=== PATIENT | female | born 1955 | race Caucasian/White ===

== ENCOUNTER 2018-06-18 10:01 | Emergency (ER) | payer OTHER ==
[2018-06-18 10:01] VITALS: BMI 33.3
[2018-06-18 10:10] VITALS: RESP 18; O2SAT 99
[2018-06-18] MEDS ORDERED: Alum-Mag Hydrox-Simethicone Susp (30 mL) PO STA (10:53)
--- NOTE | 2018-06-18 10:53 | C.PDOC ---
History Of Present Illness 62 y/o female presents to the ER complaining of pain and swelling to bilateral thighs which has been present for the past 1 week. Patient reports that she did not take any medications for the pain. She notes that she went to PMD office and was seen by Thomas RIZO and she was given prescription to go to ED for Venous Doppler Study of bilateral legs. Patient is also complaining of rash to trunk and extremities for yrs. Denies having weakness and numbness of legs. Time Seen by Provider: 06/18/18 10:29 Chief Complaint (Nursing): Lower Extremity Problem/Injury History Per: Patient History/Exam Limitations: no limitations Onset/Duration Of Symptoms: Days Current Symptoms Are (Timing): Still Present Severity: Moderate Past Medical History Reviewed: Historical Data, Nursing Documentation, Vital Signs Vital Signs: Last Vital Signs Temp 97.4 F L 06/18/18 10:06 Pulse 71 06/18/18 10:06 Resp 18 06/18/18 10:06 BP 154/76 H 06/18/18 10:06 Pulse Ox 99 06/18/18 10:06 - Medical History PMH: Arthritis, Asthma, Depression, Fractures, Gastritis Denies: Chronic Kidney Disease Other Surgeries: Hx of surgeries - [facility] Procedures ENDOSC POLYPECTOMY OF LG INTEST (01/15/15) Family History: States: No Known Family Hx - Social History Hx Tobacco Use: Yes Hx Alcohol Use: No Hx Substance Use: No - Immunization History Hx Tetanus Toxoid Vaccination: No Hx Influenza Vaccination: No Hx Pneumococcal Vaccination: No Review Of Systems Except As Marked, All Systems Reviewed And Found Negative. Musculoskeletal: Positive for: Other (pain to bilateral thighs) Skin: Positive for: Rash Neurological: Negative for: Weakness, Numbness Physical Exam - Physical Exam Appears: Non-toxic, No Acute Distress Skin: Warm, Dry, Rash (excoriated hyperpigmented papules to trunk and extremities) Head: Atraumatic, Normacephalic Eye(s): bilateral: Normal Inspection Ear(s): Bilateral: Normal Nose: Normal Oral Mucosa: Moist Lips: Normal Appearing Neck: Normal, Normal ROM, Supple Lymphatic: Normal Exam Chest: Symmetrical Cardiovascular: Rhythm Regular Respiratory: Normal Breath Sounds, No Rales, No Rhonchi, No Wheezing Extremity: Normal ROM, Tenderness (tenderness to palpation to bilateral post thighs), Swelling (mild swelling to bilateral posterior thighs ( L>R)) Neurological/Psych: Oriented x3, Normal Speech ED Course And Treatment O2 Sat by Pulse Oximetry: 99 (RA) Pulse Ox Interpretation: Normal Medical Decision Making Medical Decision Making: Plan: --Maalox PO --Ibuprofen PO --Venous Duplex Scan- Low. Ext. Bi. Updates: Venous Duplex Scan was done to BL lower extremities at bedside, the scan is negative. Disposition Counseled Patient/Family Regarding: Studies Performed, Diagnosis, Need For Followup - Disposition Referrals: Fredo Lorenzo MD [Staff Provider] - Disposition: HOME/ ROUTINE Disposition Time: 12:25 Condition: STABLE Additional Instructions: FOLLOW UP WITH YOUR PMD TOMORROW FOR RE-EVALUATION OF LEG PAIN/ SWELLING AND ECONOMIC FORECASTER REFERRAL. IF SYMPTOMS GET WORSE OR ANY NEW CONCERNING SYMPTOMS DEVELOP RETURN TO ED. Prescriptions: Triamcinolone 0.1% [Triamcinolone 0.1% Cream] 1 apful TP BID #80 g Acetaminophen [Tylenol Extra Strength] 500 mg PO Q6H PRN #15 tablet PRN Reason: Pain, Moderate (4-7) Instructions: Skin Rash (DC) Forms: [employer] ([place]orese) - Clinical Impression Clinical Impression: Leg pain, bilateral, Prurigo nodularis - PA / SEASONING SPRAYER / Resident Statement MD/DO has reviewed & agrees with the documentation as recorded. - Scribe Statement The provider has reviewed the documentation as recorded by the Brittanyibpetar Zamora Provider Attestation All medical record entries made by the Scribe were at my direction and personally dictated by me. I have reviewed the chart and agree that the record accurately reflects my personal performance of the history, physical exam, medical decision making, and the department course for this patient. I have also personally directed, reviewed, and agree with the discharge instructions and disposition.
[2018-06-18 12:35] VITALS: BP 146/79; PULSE 81; TEMP 97.9
--- NOTE | 2018-06-19 09:19 | VASCLAB ---
Date of service: 06/18/2018 PROCEDURE: Lower Extremity Venous Duplex Exam. HISTORY: pain r/o dvt B/L LE Edema PRIORS: None. TECHNIQUE: Bilateral common femoral, femoral, popliteal and posterior tibial, peroneal and great saphenous veins were evaluated. Flow was assessed with color Doppler, compressibility, assessment of phasic flow and augmentation response. Report prepared by Tremaine Metcalf, T FINDINGS: RIGHT: 1. Common Femoral Vein: 1.1. Compressibility - Fully compressible: Thrombus - None : Flow - Phasic: Augmentation -Normal: Reflux - . 2. Femoral Vein: 2.1. Compressibility - Fully compressible: Thrombus - None : Flow - Phasic: Augmentation -Normal: Reflux - . 3. Popliteal Vein: 3.1. Compressibility - Fully compressible: Thrombus - None : Flow - Phasic: Augmentation -Normal: Reflux - . 4. Posterior Tibial Vein: 4.1. Compressibility - Fully compressible: Thrombus - None: Flow - Phasic: Augmentation -Normal: Reflux - . 5. Peroneal Vein: 5.1. Compressibility - Fully compressible: Thrombus - None: Flow - Phasic: Augmentation -Normal: Reflux - . 6. Great Saphenous Vein: 6.1. Compressibility - Fully compressible: Thrombus - None: Flow - Phasic: Augmentation - Normal: Reflux - . LEFT: 1. Common Femoral Vein: 1.1. Compressibility - Fully compressible: Thrombus - None: Flow - Phasic: Augmentation -Normal: Reflux - . 2. Femoral Vein: 2.1. Compressibility - Fully compressible: Thrombus - None: Flow - Phasic: Augmentation -Normal: Reflux - . 3. Popliteal Vein: 3.1. Compressibility - Fully compressible: Thrombus - None : Flow - Phasic: Augmentation -Normal: Reflux - . 4. Posterior Tibial Vein: 4.1. Compressibility - Fully compressible: Thrombus - None: Flow - Phasic: Augmentation -Normal: Reflux - . 5. Peroneal Vein: 5.1. Compressibility - Fully compressible: Thrombus - None: Flow - Phasic: Augmentation -Normal: Reflux - . 6. Great Saphenous Vein: 6.1. Compressibility - Fully compressible: Thrombus - None: Flow - Phasic: Augmentation - Normal: Reflux - . OTHER FINDINGS: Right: None significant. Left: None significant. IMPRESSION: Right: No evidence of deep or superficial vein thrombosis of the right lower extremity. Left: No evidence of deep or superficial vein thrombosis of the left lower extremity.
== END 2018-06-18 12:40 | disposition home or self-care (01) ==
LOC: C.ER 10:01
DX: L28.1 Prurigo nodularis (principal); M79.605 Pain in left leg; M79.604 Pain in right leg; Z72.0 Tobacco use

== ENCOUNTER 2018-10-07 18:46 | Emergency (ER) | payer MEDICAID, OTHER ==
[2018-10-07 19:22] VITALS: BMI 28.8
[2018-10-07 19:47] VITALS: O2SAT 99
--- NOTE | 2018-10-07 20:05 | C.PDOC ---
History Of Present Illness Patient is a 63 year old female with pmhx of asthma, arthritis, depression who presents to ED today with complaints of headache for 5 days. Patient reports bilateral muscle pain from shoulders through posterior cervical muscles up and around head diffusely. Patient reports vertigo with position changes and increased activity. Patient reports pain is constant, not relieved by over the counter analgesics. Denies blurry vision, chest pain, SOB, nausea, vomiting, paresthesias. <OrdonezKinga - Last Filed: 10/07/18 21:43> History Per: Patient History/Exam Limitations: no limitations Onset/Duration Of Symptoms: Days Current Symptoms Are (Timing): Still Present Severity: Moderate Quality: "Pain" Preceeding Symptoms: None Associated Symptoms: denies: Photophobia, Blurred Vision, Nausea, Vomiting, Extremity Weakness Additional History Per: Family <Kinga Ordonez - Last Filed: 10/07/18 21:43> <Prasanna Thurman DO - Last Filed: 10/08/18 00:54> Chief Complaint (Nursing): Headache Past Medical History Reviewed: Historical Data, Nursing Documentation, Vital Signs Vital Signs: Last Vital Signs Temp 97.4 F L 10/07/18 19:09 Pulse 70 10/07/18 19:46 Resp 16 10/07/18 19:46 BP 170/77 H 10/07/18 19:46 Pulse Ox 99 10/07/18 19:46 - Medical History PMH: Arthritis, Asthma, Depression, Fractures, Gastritis Denies: Chronic Kidney Disease - [facility] Procedures ENDOSC POLYPECTOMY OF LG INTEST (01/15/15) Family History: States: [place] - Social History Hx Tobacco Use: Yes Hx Alcohol Use: No Hx Substance Use: No - Immunization History Hx Tetanus Toxoid Vaccination: No Hx Influenza Vaccination: No Hx Pneumococcal Vaccination: No <Kinga Ordonez - Last Filed: 10/07/18 21:43> Vital Signs: Last Vital Signs Temp 97.6 F 10/07/18 23:07 Pulse 67 10/07/18 21:42 Resp 18 10/07/18 21:42 BP 156/87 H 10/07/18 21:42 Pulse Ox 99 10/07/18 21:43 - [facility] Procedures ENDOSC POLYPECTOMY OF LG INTEST (01/15/15) <Prasanna Thurman DO - Last Filed: 10/08/18 00:54> Review Of Systems Constitutional: Negative for: Weakness Eyes: Negative for: Vision Change Cardiovascular: Negative for: Chest Pain, Palpitations, Orthopnea, Light Headedness Respiratory: Negative for: Shortness of Breath Gastrointestinal: Negative for: Nausea, Vomiting Genitourinary: Negative for: Dysuria Musculoskeletal: Positive for: Neck Pain, Shoulder Pain Skin: Positive for: Lesions (diffuse vesicles over body]) Neurological: Positive for: Headache, Other (vertigo). Negative for: Weakness, Numbness Psych: Positive for: Depression <José LuisKinga - Last Filed: 10/07/18 21:43> Physical Exam - Physical Exam Appears: Non-toxic, No Acute Distress Skin: Normal Color, Warm, Dry, Rash (diffuse vesicles crusted over) Head: Atraumatic, Normacephalic Eye(s): bilateral: Normal Inspection, PERRL, EOMI Oral Mucosa: Dry Neck: Paracervical Tenderness Cardiovascular: Rhythm Regular, No Murmur Respiratory: Decreased Breath Sounds, No Accessory Muscle Use, No Wheezing Gastrointestinal/Abdominal: Normal Exam, Bowel Sounds, Soft, No Tenderness Extremity: No Tenderness, No Pedal Edema, No Calf Tenderness Neurological/Psych: Oriented x3, Normal Speech, Normal Motor, Normal Sensation <OrdonezKinga - Last Filed: 10/07/18 21:43> ED Course And Treatment - Laboratory Results Result Diagrams: 10/07/18 20:48 10/07/18 20:48 Lab Interpretation: Normal ECG: Viewed By Id ECG Rhythm: Sinus Rhythm (possible left atrial enlargement) ECG Interpretation: No Acute Changes O2 Sat by Pulse Oximetry: 99 Pulse Ox Interpretation: Normal <José LuisKinga - Last Filed: 10/07/18 21:43> - Laboratory Results Result Diagrams: 10/07/18 20:48 10/07/18 20:48 Lab Results: Total Bilirubin 0.3 mg/dL (0.2-1.3) 10/07/18 20:48 AST 39 U/L (14-36) H 10/07/18 20:48 ALT 15 U/L (9-52) 10/07/18 20:48 Alkaline Phosphatase 112 U/L (38-126) 10/07/18 20:48 Total Protein 7.6 g/dL (6.3-8.3) 10/07/18 20:48 Albumin 4.4 g/dL (3.5-5.0) 10/07/18 20:48 Globulin 3.2 gm/dL (2.2-3.9) 10/07/18 20:48 Albumin/Globulin Ratio 1.4 (1.0-2.1) 10/07/18 20:48 <Prasanna Thurman DO - Last Filed: 10/08/18 00:54> Medical Decision Making Medical Decision Makin63 year old female presenting with complaints of headache and positional vertigo CBC CMP CT head EKG Toradol IVF Upon re-evaluation, pt reports improvement in headache severity. <Kinga Ordonez - Last Filed: 10/07/18 21:43> Disposition - Disposition Disposition Time: 21:42 <Kinga Ordonez - Last Filed: 10/07/18 21:43> <Prasanna Thurman DO - Last Filed: 10/08/18 00:54> - Disposition Referrals: [facility] Charlie Slaughter, [Non-Staff] - Disposition: HOME/ ROUTINE Condition: IMPROVED Additional Instructions: VLADISLAV ROLDAN, thank you for letting us take care of you today. The emergency medical care you received today was directed at your acute symptoms. If you were prescribed any medication, please fill it and take as directed. It may take several days for your symptoms to resolve. Return to the Emergency Department if your symptoms worsen, do not improve, or if you have any other problems. Please contact your doctor or call one of the physicians/clinics you have been referred to that are listed on the Patient Visit Information form that is included in your discharge packet. Bring any paperwork you were given at dischar ge with you along with any medications you are taking to your follow up visit. Our treatment cannot replace ongoing medical care by a primary care provider outside of the emergency department. Thank you for allowing the [facility] team to be part of your care today. Follow up with your primary care doctor this week for re-evaluation and further management. VLADISLAV ROLDAN, christine por dejarnos cuidar de ti hoy. La atencin mdica de emergencia que recibi hoy se dirigi a kyleigh sntomas agudos. Si le recetaron algn medicamento, llnelo y tmelo segn las indicaciones. Los sntomas pueden tardar varios maddox en resolverse. Regrese al Departamento de Emergencias si kyleigh sntomas empeoran, no mejoran o si tiene otros problemas. Comunquese con griffith mdico o llame a jovanny de los mdicos / clnicas a los que duarte sido referido que figuran en el formulario de Informacin de visita al paciente que se incluye en griffith paquete de bill. Lleve todos los documentos que recibi al momento del bill junto con los medicamentos que est tomando para griffith visita de seguimiento. Nuestro tratamiento no puede reemplazar la atencin mdica continua por parte de un proveedor de atencin primaria fuera del departamento de emergencias. Christine por permitir que el equipo de [facility] [employer] sea parte de griffith atencin hoy. Nash un seguimiento con griffith mdico de atencin primaria esta semana para mahin reevaluacin y manejo adicional. Prescriptions: Azithromycin [Zithromax] 250 mg PO DAILY #6 tab Meclizine [Meclizine*] 25 mg PO Q6 PRN #20 tab PRN Reason: Dizziness Instructions: Sinus Headache (DC) Forms: [employer] (M[place]ese) Print Language: BURMESE - Clinical Impression Clinical Impression: Headache, Sinusitis - PA / MILIEU MANAGER / Resident Statement CARO has reviewed & agrees with the documentation as recorded. CARO has examined the patient and agrees with the treatment plan. <Prasanna Thurman DO - Last Filed: 10/08/18 00:54>
[2018-10-07] MEDS ORDERED: Sodium Chloride 0.9% 1,000 ML IV SCH (20:15)
[2018-10-07] MEDS ORDERED: Sodium Chloride 0.9% 1,000 ML ONE (20:29)
[2018-10-07 21:00] LABS: BASO # 0.1 K/uL (0.0-0.2); BASO % 0.9 % (0.0-2.0); EOS # 0.1 K/uL (0.0-0.7); HEMOGLOBIN 12.9 g/dL (11.0-16.0); LYMPH # 2.2 K/uL (1.0-4.3); LYMPH % 37.4 % (20.0-40.0); MEAN CELL VOLUME 98.5 fL (81.0-99.0); MEAN CORPUSCULAR HEMOGLOBIN 32.5 pg (27.0-31.0); MEAN PLATELET VOLUME 8.2 fL (7.2-11.7); MONO # 0.4 K/uL (0.0-0.8); MONO % 6.5 % (0.0-10.0); NEUT # 3.1 K/uL (1.8-7.0); NEUT % 53.2 % (50.0-75.0); RBC 3.98 Mil/uL (3.80-5.20); RED CELL DISTRIBUTION WIDTH 15.2 % (11.5-14.5); WHITE BLOOD COUNT 5.9 K/uL (4.8-10.8)
[2018-10-07 21:21] LABS: ALB/GLOB RATIO 1.4 (1.0-2.1); ALBUMIN 4.4 g/dL (3.5-5.0); ALT/SGPT 15 U/L (9-52); AST/SGOT 39 U/L (14-36); BLOOD UREA NITROGEN 10 mg/dL (7-17); CALCIUM 8.9 mg/dl (8.6-10.4); GFR NON-AFRICAN AMERICAN > 60
[2018-10-07 21:43] VITALS: BP 156/87; PULSE 67; RESP 18
[2018-10-07 23:07] VITALS: TEMP 97.6
--- NOTE | 2018-10-08 08:35 | CT ---
Date of service: 10/07/2018 PROCEDURE: CT HEAD WITHOUT CONTRAST. HISTORY: headache/vertigo COMPARISON: None available. TECHNIQUE: Axial computed tomography images were obtained through the head/brain without intravenous contrast. Radiation dose: Total exam DLP = 1054.27 mGy-cm. This CT exam was performed using one or more of the following dose reduction techniques: Automated exposure control, adjustment of the mA and/or kV according to patient size, and/or use of iterative reconstruction technique. FINDINGS: HEMORRHAGE: No intracranial hemorrhage. BRAIN: No mass effect or edema. No atrophy or chronic microvascular ischemic changes. Punctate hypodensity in the left basal ganglia suggestive for a punctate lacunar infarct. VENTRICLES: Unremarkable. No hydrocephalus. CALVARIUM: Unremarkable. PARANASAL SINUSES: Moderate mucosal opacification of the ethmoid air cells. Mucosal thickening of the bilateral maxillary sinuses. MASTOID AIR CELLS: Unremarkable as visualized. No inflammatory changes. OTHER FINDINGS: None. IMPRESSION: No acute intracranial abnormality. Sinus mucosal disease. If symptoms persists, consider correlation with MRI. A preliminary report was generated at 10:26 p.m. on 10/07/[address] Vernon Frye from [employer].
--- NOTE | 2018-10-08 20:42 | CARD ---
APPROVED REPORT Date of service: 10/07/2018 EKG Measurement Heart [id number] <Conclusion> Normal sinus rhythm Possible Left atrial enlargement Borderline ECG
== END 2018-10-07 23:10 | disposition home or self-care (01) ==
LOC: C.ER 18:46
DX: J32.9 Chronic sinusitis, unspecified (principal); R51 Headache; Z72.0 Tobacco use; M19.90 Unspecified osteoarthritis, unspecified site; F32.9 Major depressive disorder, single episode, unspecified
CPT/HCPCS: 70450; 80053; 82948; 85025; 93005; 96374; 99285; J1885; J7030